=== PATIENT | male | born 1995 | race Caucasian/White ===

== ENCOUNTER 2019-02-15 21:50 | Emergency (ER) | payer SELFPAY ==
[~2019-02-15] VITALS: Ht 175.3 cm; Wt 64.9 kg
[~2019-02-15 21:50] MED LIST: AMOX500C2 PO; IBUP-1542 PO; PHEN177S43 MT
[2019-02-15 21:52] VITALS: Ht 175.3 cm; Wt 64.9 kg
[2019-02-16 00:24] VITALS: BP 129/73; PULSE 97; RESP 16
== END 2019-02-16 00:25 | disposition home or self-care (01) ==
LOC: FTE 21:50
DX: J02.9 Acute pharyngitis, unspecified (principal)
CPT/HCPCS: 99283